=== PATIENT | male | born 1980 | race Caucasian/White ===

== ENCOUNTER → 2022-07-08 | Outpatient (CLI) | payer OTHER ==
[2022-07-12 08:09] LABS: LYME TOTAL ANTIBODY CIA Negative (Negative)
== END | disposition home or self-care (01) ==
LOC: LAB 15:25 → LAB SHORT 15:25
PROVIDERS: Hospitalist
DX: M25.541 Pain in joints of right hand (principal)
CPT/HCPCS: 85651; 86038; 86430; 86618